=== PATIENT | female | born 1960 | race Caucasian/White ===

== ENCOUNTER 2016-08-12 20:07 | Emergency (ER) | payer MEDICARE, BC ==
[~2016-08-12] VITALS: Ht 170.2 cm; Wt 70.0 kg
[2016-08-12] MEDS ORDERED: METH500T97 PO (20:27)
[2016-08-12] MEDS ORDERED: CLON1TAB PO (20:28)
[2016-08-12] MEDS ORDERED: SODIUM CHLORIDE 0.9% 1,000 ML IV ONE (20:44)
[2016-08-12] MEDS ORDERED: ASPIRIN 81 MG TABLET CHEW PO ONE (21:00)
[2016-08-12] MEDS ORDERED: LORazepam 2 MG/ML, 1ML IVPush ONE (21:00)
[2016-08-12] MEDS ORDERED: NITROGLYCERIN SINGLE TAB 0.4 MG SL PRN (21:00)
[2016-08-12] MEDS ORDERED: SODIUM CHLORIDE FLUSH 10ML SYR IVF ONE (21:00)
[2016-08-12] MEDS ORDERED: ONDANSETRON 2MG/ML, 2ML IVPush ONE (21:00)
[2016-08-12] MEDS ORDERED: ASPIRIN 81 MG TABLET CHEW ONE (21:10)
[2016-08-12] MEDS ORDERED: NITROGLYCERIN SINGLE TAB 0.4 MG SL ONE (21:11)
[2016-08-12] MEDS ORDERED: LORazepam 2 MG/ML, 1ML ONE (21:14)
[2016-08-12] MEDS ORDERED: ONDANSETRON 2MG/ML, 2ML ONE (21:15)
[2016-08-12 21:27] LABS: BLOOD UREA NITROGEN 24 mg/dL (7-18)
[2016-08-12] MEDS ORDERED: SODIUM CHLORIDE FLUSH 10ML SYR IVF PRN (22:30)
[2016-08-12] MEDS ORDERED: SODIUM CHLORIDE 0.9% 1,000 ML IV SCH (22:45)
[2016-08-12] MEDS ORDERED: LABETALOL 5MG/ML, 20ML IVPush PRN (23:00)
[2016-08-12] MEDS ORDERED: TRAZODONE 50MG TABLET PO PRN (23:00)
[2016-08-12] MEDS ORDERED: ATORVASTATIN 80 MG TABLET PO SCH (23:00)
[2016-08-12] MEDS ORDERED: ACETAMINOPHEN 325 MG TABLET PO PRN (23:00)
[2016-08-12] MEDS ORDERED: ENOXAPARIN 40 MG/0.4 ML SQ SCH (23:00)
[2016-08-12] MEDS ORDERED: BISACODYL 10 MG SUPP PR PRN (23:00)
[2016-08-12] MEDS ORDERED: POLYETHYLENE GLYCOL 17 GM PACKET PO PRN (23:00)
[2016-08-12] MEDS ORDERED: DOCUSATE 100 MG CAPSULE PO PRN (23:00)
[2016-08-12] MEDS ORDERED: ENOXAPARIN 40 MG/0.4 ML ONE (23:35)
[2016-08-13 03:42] VITALS: BP 133/72
[2016-08-13 06:00] LABS: ASPARTATE AMINO TRANSFERASE 24 U/L (15-37); BLOOD UREA NITROGEN 21 mg/dL (7-18)
[2016-08-13] MEDS ORDERED: ASPIRIN 325 MG TABLET EC PO SCH (06:00)
[2016-08-13 06:11] LABS: IS PT STATUS REG ER OR PRE ER? YES
[2016-08-13] MEDS ORDERED: ASPIRIN 325 MG TABLET ONE (07:33)
[2016-08-13] MEDS ORDERED: ASPIRIN 325 MG TABLET EC ONE (07:35)
[2016-08-13] MEDS ORDERED: METHOCARBAMOL 500 MG TABLET PO SCH (09:00)
[2016-08-13] MEDS ORDERED: NITROFURANTOIN (MACROBID) 100 MG CAPSULE PO SCH (09:00)
[2016-08-18] MEDS ORDERED: CLON-365 PO (17:27)
[2016-08-18] MEDS ORDERED: GABA600T PO (17:27)
[2016-08-18] MEDS ORDERED: IBUP-1222 PO (17:27)
[2016-08-18] MEDS ORDERED: OMEP-110 PO (17:27)
[2016-08-18] MEDS ORDERED: OXCA600T3 PO (17:27)
[2016-08-19] MEDS ORDERED: HYDR-3240 PO (15:36)
== END 2016-08-13 08:13 | disposition left against medical advice (07) ==
LOC: ED 22:21 → UNDOADMOB 22:45 → EDIP 22:45 → ED 08-13 08:13
DX: R07.2 Precordial pain (principal); M54.5 Low back pain; G89.29 Other chronic pain; F17.210 Nicotine dependence, cigarettes, uncomplicated
CPT/HCPCS: 36415; 71010; 80048; 80053; 81001; 82040; 83735; 83880; 84439; 84443; 84484; 85025; 85610; 85730; 87077; 87086; 87186; 93005; 96361; 96372; 96374; 96375; 99285; J1650; J2060; J2405; J7030

== ENCOUNTER → 2016-09-19 | Outpatient (CLI) | payer MEDICARE, BC ==
[~2016-09-19] MED LIST: CHOL20002 PO; CLON-365 PO; CLON1TAB PO; DIAZ2TAB PO; GABA-826 PO; GABA600T PO; HYDR-3240 PO; IBUP-1222 PO; LURA20TA PO; METH500T97 PO; METH750T2 PO; METH750T87 PO; MULT-516 PO; OMEP-110 PO; OXCA150T PO; OXCA300T3 PO; OXCA600T3 PO; OXYC-302 PO; OXYC5TAB3 PO
== END | disposition home or self-care (01) ==
LOC: STAR 13:26
PROVIDERS: ATTEND Orthopaedic Surgery Orthopaedic Surgery of the Spine
DX: Z02.9 Encounter for administrative examinations, unspecified (principal)

== ENCOUNTER 2016-09-24 10:52 | Observation (INO) | payer MEDICARE, BC ==
[~2016-09-24] VITALS: Ht 170.2 cm; Wt 67.5 kg
[~2016-09-24 10:52] MED LIST changes: +CEFAZOLIN 1,000 MG ONE; +DEXAMETHASONE 4 MG/ML, 1ML ONE; -DIAZ2TAB PO; +EPHEDRINE 50 MG/ML, 1ML ONE; -GABA-826 PO; +KETOROLAC 30 MG/1 ML ONE; -LURA20TA PO; -METH750T2 PO; +ONDANSETRON 2MG/ML, 2ML ONE; -OXCA150T PO; -OXYC-302 PO; -OXYC5TAB3 PO; +PHENYLEPHRINE 10 MG/ML ONE; +PROPOFOL 10 MG/ML, 20ML ONE; +SUCCINYLCHOLINE 20 MG/ML, 10ML ONE
[2016-09-24] MEDS ORDERED: LACTATED RINGERS 1,000 ML IV SCH (11:25)
[2016-09-24 12:23] VITALS: BP 142/85
[2016-09-24] MEDS ORDERED: DIAZ2TAB PO (12:23)
[2016-09-24] MEDS ORDERED: OXYC-302 PO (12:23)
[2016-09-24] MEDS ORDERED: MIDAZOLAM 1 MG/ML, 2ML ONE (13:26)
[2016-09-24] MEDS ORDERED: FENTANYL PF 250 MCG/5ML ONE (13:26)
[2016-09-24] MEDS ORDERED: LIDOCAINE/MPF 2%-EPI 1:200K, 20 ML ONE (13:59)
[2016-09-24] MEDS ORDERED: VANCOMYCIN 1,000 MG ONE (13:59)
[2016-09-24] MEDS ORDERED: BUPIVACAINE LIPOSOME/PF INFIL ONE (14:30)
[2016-09-24] MEDS ORDERED: MIDAZOLAM 1 MG/ML, 2ML IV PRN (15:00)
[2016-09-24] MEDS ORDERED: ACETAMINOPHEN 325 MG TABLET PO PRN (15:00)
[2016-09-24] MEDS ORDERED: PROMETHAZINE 25 MG/ML, 1ML IV PRN (15:00)
[2016-09-24] MEDS ORDERED: METOCLOPRAMIDE 5 MG/ML, 2ML IV PRN (15:00)
[2016-09-24] MEDS ORDERED: OXYcodone 5 MG/5 ML ORAL.SOL UDC PO PRN (15:00)
[2016-09-24] MEDS ORDERED: MEPERIDINE/PF 25MG/0.5ML IVPush PRN (15:00)
[2016-09-24] MEDS ORDERED: ALBUTEROL/IPRATROPIUM 2.5MG/0.5MG, 3 ML NPPB PRN (15:00)
[2016-09-24] MEDS ORDERED: ONDANSETRON 2MG/ML, 2ML IVPush PRN (15:00)
[2016-09-24] MEDS ORDERED: hydrALAzine 20 MG/ML, 1ML IV PRN (15:00)
[2016-09-24] MEDS ORDERED: LABETALOL 5MG/ML, 20ML IV PRN (15:00)
[2016-09-24] MEDS ORDERED: HYDROmorphone 1 MG/ML, 1ML ONE ×3 (15:50→21:55)
[2016-09-24] MEDS ORDERED: FENTANYL PF 100 MCG/2ML ONE (16:11)
[2016-09-24] MEDS ORDERED: ACETAMINOPHEN 650 MG/20.3 ML UDC ONE (16:11)
[2016-09-24] MEDS ORDERED: OXYcodone 5 MG/5 ML ORAL.SOL UDC ONE (16:11)
[2016-09-24] MEDS ORDERED: LORazepam 2 MG/ML, 1ML ONE (16:12)
[2016-09-24] MEDS: FENTANYL PF 100 MCG/2ML IV PRN ×2 (16:16→16:26)
[2016-09-24] MEDS: HYDROmorphone 1 MG/ML, 1ML IV PRN ×2 (16:26→16:44)
[2016-09-24] MEDS: LORazepam 2 MG/ML, 1ML IVPush PRN ×2 (16:32→23:44)
[2016-09-24] MEDS ORDERED: OXYcodone IR 5MG TABLET ONE (21:55)
[2016-09-24] MEDS: HYDROmorphone 1 MG/ML, 1ML IVPush PRN (21:59)
[2016-09-24] MEDS: OXYcodone IR 5MG TABLET PO PRN (21:59)
[2016-09-24] MEDS ORDERED: OXCARBAZEPINE 150 MG TABLET PO SCH (22:30)
[2016-09-24] MEDS: OMEPRAZOLE MC SCH (23:00)
[2016-09-25 02:00] VITALS: BP 131/83
[2016-09-25] MEDS: OXYcodone IR 5MG TABLET PO PRN ×2 (02:34→07:12)
[2016-09-25] MEDS: HYDROmorphone 1 MG/ML, 1ML IVPush PRN (05:24)
[2016-09-25] MEDS: OMEPRAZOLE MC SCH (07:00)
[2016-09-25] MEDS ORDERED: CHOLECALCIFEROL 1,000 UNIT TABLET PO SCH (09:00)
[2016-09-25] MEDS ORDERED: GABAPENTIN 300 MG CAPSULE PO SCH (09:00)
[2016-09-25] MEDS ORDERED: DIAZEPAM 2 MG TABLET PO SCH (09:00)
[2016-09-25] MEDS ORDERED: MULTIVITAMIN 1 TABLET PO SCH (09:00)
[2016-09-25] MEDS ORDERED: METHOCARBAMOL 750 MG TABLET PO SCH (09:00)
[2016-09-25] MEDS ORDERED: OXYcodone/APAP 5/325MG TABLET PO SCH (09:00)
[2016-09-25 09:50] VITALS: BP 134/76
== END 2016-09-25 10:15 | disposition home or self-care (01) ==
LOC: ORIP 10:52 → INTOOBSV 10:52 → 4NOR 17:18 → OBSVTOIN 09-25 10:22 → INTOOBSV 09-25 10:22 → UNDODISOB 09-25 11:07
PROVIDERS: ADMIT Orthopaedic Surgery Orthopaedic Surgery of the Spine; ATTEND Orthopaedic Surgery Orthopaedic Surgery of the Spine
DX: M48.07 Spinal stenosis, lumbosacral region (principal); M54.17 Radiculopathy, lumbosacral region; M79.661 Pain in right lower leg
CPT/HCPCS: 63047; 72100; 96374; 96375; 96376; C9290; G0378; J0330; J0690; J1100; J1170; J1885; J2060; J2250; J2370; J2405; J2704; J3010; J3370; J3490; J7120

== ENCOUNTER 2016-09-27 13:36 | Inpatient (IN) | payer MEDICARE, BC ==
[~2016-09-27] VITALS: Ht 170.2 cm; Wt 57.9 kg
[~2016-09-27 13:36] MED LIST changes: -CEFAZOLIN 1,000 MG ONE; -DEXAMETHASONE 4 MG/ML, 1ML ONE; +DIAZ2TAB PO; -EPHEDRINE 50 MG/ML, 1ML ONE; -KETOROLAC 30 MG/1 ML ONE; -ONDANSETRON 2MG/ML, 2ML ONE; +OXYC-302 PO; -PHENYLEPHRINE 10 MG/ML ONE; -PROPOFOL 10 MG/ML, 20ML ONE; -SUCCINYLCHOLINE 20 MG/ML, 10ML ONE
[2016-09-27] MEDS ORDERED: MORPHINE SULFATE 4 MG/ML, 1ML IVPush ONE (14:30)
[2016-09-27] MEDS ORDERED: KETOROLAC 30 MG/1 ML IVPush ONE (14:30)
[2016-09-27] MEDS ORDERED: DIAZEPAM 5 MG/ML, 2ML IV ONE (14:30)
[2016-09-27] MEDS ORDERED: SODIUM CHLORIDE FLUSH 10ML SYR IVF ONE (14:30)
[2016-09-27] MEDS ORDERED: SODIUM CHLORIDE 0.9% 1,000ML IV ONE (14:30)
[2016-09-27 14:57] LABS: ASPARTATE AMINO TRANSFERASE 96 U/L (15-37); BLOOD UREA NITROGEN 16 mg/dL (7-18)
[2016-09-27] MEDS ORDERED: KETOROLAC 30 MG/1 ML ONE (15:19)
[2016-09-27] MEDS ORDERED: MORPHINE SULFATE 4 MG/ML, 1ML ONE (15:19)
[2016-09-27] MEDS ORDERED: DIAZEPAM 5 MG/ML, 2ML ONE (15:19)
[2016-09-27] MEDS ORDERED: ONDANSETRON 2MG/ML, 2ML IVPush PRN (16:30)
[2016-09-27] MEDS ORDERED: LABETALOL 5MG/ML, 20ML IVPush PRN ×2 (16:30→17:30)
[2016-09-27] MEDS ORDERED: DOCUSATE 100 MG CAPSULE PO PRN (16:30)
[2016-09-27] MEDS ORDERED: ENALAPRILAT 1.25 MG/ML, 2ML IVPush PRN ×2 (16:30→17:30)
[2016-09-27] MEDS ORDERED: BISACODYL 10 MG SUPP PR PRN (16:30)
[2016-09-27] MEDS ORDERED: POLYETHYLENE GLYCOL 17 GM PACKET PO PRN (16:30)
[2016-09-27] MEDS: HEPARIN 5,000 UNITS/ML, 1ML SQ SCH (17:45)
[2016-09-27] MEDS: OXYcodone/APAP 5/325MG TABLET PO PRN ×2 (17:45→22:08)
[2016-09-27] MEDS: SODIUM CHLORIDE 0.9% 1,000 ML IV SCH (17:46)
[2016-09-27] MEDS: METHOCARBAMOL 750 MG TABLET PO PRN (18:34)
[2016-09-27 19:31] VITALS: BP 143/76
[2016-09-27] MEDS: morphine SULFATE 10 MG/ML, 1ML IVPush PRN (20:28)
[2016-09-27] MEDS: GABAPENTIN 300 MG CAPSULE PO SCH (20:35)
[2016-09-27] MEDS: OXCARBAZEPINE 150 MG TABLET PO SCH (20:36)
[2016-09-27] MEDS: DIAZEPAM 2 MG TABLET PO PRN (21:04)
[2016-09-28] MEDS: METHOCARBAMOL 750 MG TABLET PO PRN (01:03)
[2016-09-28] MEDS: DIPHENHYDRAMINE 25 MG CAPSULE PO PRN (01:03)
[2016-09-28] MEDS: morphine SULFATE 10 MG/ML, 1ML IVPush PRN ×5 (01:03→20:41)
[2016-09-28] MEDS: HEPARIN 5,000 UNITS/ML, 1ML SQ SCH ×3 (01:10→16:53)
[2016-09-28 01:31] VITALS: BP 114/68
[2016-09-28] MEDS: SODIUM CHLORIDE 0.9% 1,000 ML IV SCH ×2 (05:34→15:37)
[2016-09-28 06:36] LABS: ASPARTATE AMINO TRANSFERASE 72 U/L (15-37); BLOOD UREA NITROGEN 16 mg/dL (7-18)
[2016-09-28] MEDS ORDERED: OMEPRAZOLE 20 MG CAPSULE.DR PO SCH (07:30)
[2016-09-28 08:04] VITALS: BP 131/75
[2016-09-28] MEDS: OXYcodone IR 5MG TABLET PO PRN (08:16)
[2016-09-28] MEDS: GABAPENTIN 300 MG CAPSULE PO SCH ×3 (08:16→20:40)
[2016-09-28] MEDS: DIAZEPAM 2 MG TABLET PO PRN ×3 (08:16→23:55)
[2016-09-28] MEDS: SENNA/DOCUSATE TABLET PO SCH (08:18)
[2016-09-28 14:26] VITALS: BP 121/56
[2016-09-28] MEDS ORDERED: KETOROLAC 30 MG/1 ML IVPush SCH (15:30)
[2016-09-28] MEDS: KETOROLAC 30 MG/1 ML IVPush PRN ×2 (17:30→23:56)
[2016-09-28] MEDS: OXCARBAZEPINE 150 MG TABLET PO SCH (20:40)
[2016-09-28 20:47] VITALS: BP 153/98
[2016-09-29] MEDS: HEPARIN 5,000 UNITS/ML, 1ML SQ SCH ×3 (01:32→17:00)
[2016-09-29] MEDS: SODIUM CHLORIDE 0.9% 1,000 ML IV SCH ×3 (01:32→21:29)
[2016-09-29] MEDS: OXYcodone IR 5MG TABLET PO PRN ×3 (01:38→15:32)
[2016-09-29] MEDS: METHOCARBAMOL 750 MG TABLET PO PRN ×2 (01:38→10:29)
[2016-09-29 01:39] VITALS: BP 144/76
[2016-09-29] MEDS: morphine SULFATE 10 MG/ML, 1ML IVPush PRN ×3 (03:57→18:03)
[2016-09-29 05:42] LABS: ASPARTATE AMINO TRANSFERASE 53 U/L (15-37); BLOOD UREA NITROGEN 17 mg/dL (7-18)
[2016-09-29] MEDS: KETOROLAC 30 MG/1 ML IVPush PRN ×3 (06:04→20:23)
[2016-09-29] MEDS: DIAZEPAM 2 MG TABLET PO PRN ×3 (06:04→20:22)
[2016-09-29 07:53] VITALS: BP 165/75
[2016-09-29] MEDS: SENNA/DOCUSATE TABLET PO SCH (08:02)
[2016-09-29] MEDS: GABAPENTIN 300 MG CAPSULE PO SCH ×3 (08:02→20:22)
[2016-09-29] MEDS ORDERED: OXYC5TAB3 PO (09:26)
[2016-09-29 13:05] VITALS: BP 156/78
[2016-09-29 19:17] VITALS: BP 159/81
[2016-09-29] MEDS: OXCARBAZEPINE 150 MG TABLET PO SCH (20:22)
[2016-09-30] MEDS: morphine SULFATE 10 MG/ML, 1ML IVPush PRN ×2 (00:23→08:15)
[2016-09-30] MEDS: HEPARIN 5,000 UNITS/ML, 1ML SQ SCH ×3 (00:25→17:28)
[2016-09-30 01:32] VITALS: BP 154/84
[2016-09-30] MEDS: DIAZEPAM 2 MG TABLET PO PRN ×2 (04:02→10:52)
[2016-09-30] MEDS: KETOROLAC 30 MG/1 ML IVPush PRN ×2 (04:03→10:52)
[2016-09-30 07:53] VITALS: BP 167/84
[2016-09-30] MEDS: GABAPENTIN 300 MG CAPSULE PO SCH ×3 (08:15→21:23)
[2016-09-30] MEDS: SENNA/DOCUSATE TABLET PO SCH (08:15)
[2016-09-30] MEDS: SODIUM CHLORIDE 0.9% 1,000 ML IV SCH (10:52)
[2016-09-30] MEDS: OXYcodone IR 5MG TABLET PO PRN ×3 (13:32→22:09)
[2016-09-30] MEDS: METHOCARBAMOL 750 MG TABLET PO PRN ×2 (13:32→22:09)
[2016-09-30 14:32] VITALS: BP 126/63
[2016-09-30 18:46] VITALS: BP 180/98
[2016-09-30] MEDS: OXCARBAZEPINE 150 MG TABLET PO SCH (21:00)
[2016-09-30] MEDS: DIPHENHYDRAMINE 25 MG CAPSULE PO PRN (22:09)
[2016-09-30 22:12] VITALS: BP 166/99
[2016-10-01] MEDS: HEPARIN 5,000 UNITS/ML, 1ML SQ SCH ×3 (01:22→17:11)
[2016-10-01 01:26] VITALS: BP 160/85
[2016-10-01] MEDS: OXYcodone IR 5MG TABLET PO PRN ×5 (03:16→20:57)
[2016-10-01 07:37] VITALS: BP 149/70
[2016-10-01] MEDS: GABAPENTIN 300 MG CAPSULE PO SCH (08:28)
[2016-10-01] MEDS: SENNA/DOCUSATE TABLET PO SCH (08:30)
[2016-10-01] MEDS: METHOCARBAMOL 750 MG TABLET PO PRN ×2 (08:58→17:12)
[2016-10-01 14:00] VITALS: BP 152/73
[2016-10-01] MEDS ORDERED: GABAPENTIN 300 MG CAPSULE PO SCH (16:00)
[2016-10-01] MEDS: LURASIDONE 20 MG TABLET PO SCH (17:11)
[2016-10-01] MEDS: GABAPENTIN 100 MG CAPSULE PO SCH (18:13)
[2016-10-01] MEDS: OXCARBAZEPINE 150 MG TABLET PO SCH (20:50)
[2016-10-01 21:03] VITALS: BP 147/82
[2016-10-02] MEDS: METHOCARBAMOL 750 MG TABLET PO PRN ×3 (01:33→18:07)
[2016-10-02] MEDS: OXYcodone IR 5MG TABLET PO PRN ×5 (01:33→18:07)
[2016-10-02] MEDS: HEPARIN 5,000 UNITS/ML, 1ML SQ SCH ×3 (01:33→17:00)
[2016-10-02 03:45] VITALS: BP 129/76
[2016-10-02 07:27] VITALS: BP 116/63
[2016-10-02 08:34] LABS: ASPARTATE AMINO TRANSFERASE 27 U/L (15-37); BLOOD UREA NITROGEN 18 mg/dL (7-18)
[2016-10-02] MEDS: SENNA/DOCUSATE TABLET PO SCH (09:00)
[2016-10-02] MEDS: GABAPENTIN 100 MG CAPSULE PO SCH (10:01)
[2016-10-02 12:44] VITALS: BP 127/69
[2016-10-02] MEDS ORDERED: LURA20TA PO (17:08)
[2016-10-02] MEDS ORDERED: GABA-826 PO (17:08)
[2016-10-02] MEDS ORDERED: OXCA150T PO (17:08)
[2016-10-02] MEDS ORDERED: METH750T2 PO (17:08)
[2016-10-02] MEDS: LURASIDONE 20 MG TABLET PO SCH (18:07)
[2016-10-02] MEDS ORDERED: GABAPENTIN 100 MG CAPSULE PO SCH (21:00)
== END 2016-10-02 19:49 | disposition home or self-care (01) | DRG 551 ==
LOC: ED 14:13 → EDIP 15:48 → 3NE 16:35
PROVIDERS: ADMIT Internal Medicine; ATTEND Hospitalist
DX: M96.1 Postlaminectomy syndrome, not elsewhere classified (principal); E43 Unspecified severe protein-calorie malnutrition; F31.81 Bipolar II disorder; I44.7 Left bundle-branch block, unspecified; F41.9 Anxiety disorder, unspecified; F12.90 Cannabis use, unspecified, uncomplicated; F43.10 Post-traumatic stress disorder, unspecified; I10 Essential (primary) hypertension; Z60.2 Problems related to living alone; I25.10 Atherosclerotic heart disease of native coronary artery without angina pectoris; J44.9 Chronic obstructive pulmonary disease, unspecified; K21.9 Gastro-esophageal reflux disease without esophagitis; Z90.49 Acquired absence of other specified parts of digestive tract; Z68.20 Body mass index [BMI] 20.0-20.9, adult; Z98.51 Tubal ligation status; Z88.6 Allergy status to analgesic agent; M62.838 Other muscle spasm; T42.1X5A Adverse effect of iminostilbenes, initial encounter; T42.4X5A Adverse effect of benzodiazepines, initial encounter; T39.1X5A Adverse effect of 4-Aminophenol derivatives, initial encounter
CPT/HCPCS: 36415; 72100; 80053; 83735; 84100; 85025; 96374; 96375; 96376; C9290; G0378; J0690; J1100; J1170; J1644; J1885; J2250; J2405; J2704; J3010; J3360; J3370; J3490; J0330; J2060; J2270; J2370; J7030; J7120; Q0163

== ENCOUNTER → 2017-08-14 | Outpatient (CLI) | payer MEDICARE, BC ==
[~2017-08-14] MED LIST changes: +GABA-826 PO; +LURA20TA PO; +METH750T2 PO; +OXCA150T PO; +OXYC5TAB3 PO
[2017-08-14 15:39] LABS: MICROSCOPIC AUTO
[2017-08-14 15:41] LABS: INTERNATIONAL NORMALIZED RATIO 1.04 (0.93-1.1); PROTHROMBIN TIME 10.7 Seconds (9.6-11.5)
[2017-08-14 15:43] LABS: CULTURE INDICATED? YES
[2017-08-14 16:24] LABS: CHLORIDE 103 mmol/L (98-107)
[2017-08-14 16:43] LABS: ALANINE AMINOTRANSFERASE 25 U/L (12-78); ALBUMIN 4.3 g/dL (3.4-5.0); ALKALINE PHOSPHATASE 97 U/L (45-117); ANION GAP 8 mmol/L (5-15); BILIRUBIN,TOTAL 0.6 mg/dL (0.2-1.0); CALCIUM 8.7 mg/dL (8.5-10.1); CREATININE 1.01 mg/dL (0.55-1.02); FREE T4 (FREE THYROXINE) 0.84 ng/dL (0.76-1.46)
== END | disposition home or self-care (01) ==
LOC: LAB 14:47
PROVIDERS: ATTEND Naturopath
DX: Z00.01 Encounter for general adult medical examination with abnormal findings (principal); R53.83 Other fatigue; F41.9 Anxiety disorder, unspecified; N95.1 Menopausal and female climacteric states; F31.4 Bipolar disorder, current episode depressed, severe, without psychotic features; R79.1 Abnormal coagulation profile
CPT/HCPCS: 36415; 80053; 81001; 82670; 83001; 84144; 84439; 84443; 84481; 85610; 85730; 87077; 87086; 87186

== ENCOUNTER → 2019-04-28 | Outpatient (CLI) | payer MEDICARE, BC ==
[~2019-04-28] MED LIST changes: +ALPR1TAB6 PO; -CHOL20002 PO; +CHOL200052 PO; -CLON-365 PO; +CLON1TAB11 PO; +CYCL5TAB PO; +LURA40TA PO; -OXCA150T PO; +OXCA150T18 PO; +TRAM50TA2 PO
[2019-04-28 13:44] LABS: BASOPHILS # (AUTO) 0.03 x10^3/uL (0-0.1); BASOPHILS % (AUTO) 1 % (0-1); EOSINOPHILS # (AUTO) 0.03 x10^3/uL (0-0.4); EOSINOPHILS % (AUTO) 1 % (1-7); LYMPHOCYTES # (AUTO) 2.04 x10^3/uL (1-3.4); LYMPHOCYTES % (AUTO) 34 % (22-44); MD NO; MEAN CORPUSCULAR HEMOGLOBIN 31.3 pg (27.0-34.8); MEAN CORPUSCULAR HGB CONC 33.8 g/dL (32.4-35.8); MEAN CORPUSCULAR VOLUME 92.6 fL (80-100); MEAN PLATELET VOLUME 8.3 fL (7.4-10.4); MONOCYTES # (AUTO) 0.38 x10^3/uL (0.2-0.8); MONOCYTES % (AUTO) 6 % (2-9); NEUTROPHILS # (AUTO) 3.48 x10^3/uL (1.8-6.8); NEUTROPHILS % (AUTO) 58 % (42-75); PLATELET COUNT 271 x10^3/uL (130-400); RED BLOOD COUNT 4.62 x10^6/uL (3.82-5.3); RED CELL DISTRIBUTION WIDTH 12.4 % (9.6-15.2)
[2019-04-28 13:44] LABS: MICROSCOPIC NOT IND
[2019-04-28 13:53] LABS: ALANINE AMINOTRANSFERASE 26 U/L (12-78); ALBUMIN 4.1 g/dL (3.4-5.0); ANION GAP 4 mmol/L (5-15); CALCIUM 9.1 mg/dL (8.5-10.1); CHLORIDE 106 mmol/L (98-107); CREATININE 0.96 mg/dL (0.55-1.02)
[2019-04-28 13:54] LABS: ALKALINE PHOSPHATASE 88 U/L (45-117); BILIRUBIN,TOTAL 0.3 mg/dL (0.2-1.0); TOTAL PROTEIN 7.2 g/dL (6.4-8.2)
[2019-04-28 13:56] LABS: INTERNATIONAL NORMALIZED RATIO 0.94 (0.93-1.1)
[2019-04-28 14:21] LABS: CULTURE INDICATED? NO
== END | disposition home or self-care (01) ==
LOC: STAR 12:23
PROVIDERS: ATTEND Neurological Surgery
DX: Z01.812 Encounter for preprocedural laboratory examination (principal); Z01.811 Encounter for preprocedural respiratory examination; M47.26 Other spondylosis with radiculopathy, lumbar region; M43.16 Spondylolisthesis, lumbar region; M54.5 Low back pain; R79.1 Abnormal coagulation profile; R94.31 Abnormal electrocardiogram [ECG] [EKG]
CPT/HCPCS: 36415; 71046; 80053; 81003; 85025; 85610; 85730; 93005

== ENCOUNTER 2019-05-10 05:43 | Inpatient (IN) | payer MEDICARE, BC ==
[~2019-05-10] VITALS: Ht 157.5 cm; Wt 69.0 kg
[2019-05-10] MEDS ORDERED: THROMBIN 5,000 UNIT VIAL TP ONE (06:04)
[2019-05-10] MEDS ORDERED: HEPARIN 1,000 UNITS/ML, 30ML ONE (06:04)
[2019-05-10] MEDS ORDERED: BUPIVACAINE/PF-EPI 0.5% 1:200K ONE (06:04)
[2019-05-10] MEDS ORDERED: BACITRACIN 50,000 UNIT ONE (06:05)
[2019-05-10 06:17] VITALS: BP 134/91
[2019-05-10] MEDS ORDERED: LACTATED RINGERS 1,000 ML IV SCH (06:20)
[2019-05-10] MEDS ORDERED: FENTANYL PF 250 MCG/5ML ONE (06:38)
[2019-05-10] MEDS ORDERED: MIDAZOLAM 1 MG/ML, 2ML ONE (06:38)
[2019-05-10] MEDS ORDERED: LISI-167 PO (06:56)
[2019-05-10] MEDS ORDERED: CEFAZOLIN 1,000 MG ONE (07:03)
[2019-05-10] MEDS ORDERED: ONDANSETRON 2MG/ML, 2ML ONE (07:03)
[2019-05-10] MEDS ORDERED: SUCCINYLCHOLINE 20 MG/ML, 10ML ONE (07:03)
[2019-05-10] MEDS ORDERED: ROCURONIUM 10 MG/ML,10ML ONE (07:03)
[2019-05-10] MEDS ORDERED: PROPOFOL 10 MG/ML, 20ML ONE (07:03)
[2019-05-10] MEDS ORDERED: DEXAMETHASONE 4 MG/ML, 1ML ONE (07:03)
[2019-05-10] MEDS ORDERED: LABETALOL 5MG/ML, 20ML IV PRN (08:00)
[2019-05-10] MEDS ORDERED: PROMETHAZINE 25 MG/ML, 1ML IV PRN (08:00)
[2019-05-10] MEDS ORDERED: KETOROLAC 30 MG/1 ML IV PRN (08:00)
[2019-05-10] MEDS ORDERED: DIAZEPAM 5 MG/ML, 2ML IV PRN ×2 (08:00)
[2019-05-10] MEDS ORDERED: METOCLOPRAMIDE 5 MG/ML, 2ML IV PRN (08:00)
[2019-05-10] MEDS ORDERED: ALBUTEROL SULFATE 2.5 MG/3 ML NPPB PRN (08:00)
[2019-05-10] MEDS ORDERED: OXYcodone 5 MG/5 ML ORAL.SOL UDC PO PRN (08:00)
[2019-05-10] MEDS ORDERED: ONDANSETRON 2MG/ML, 2ML IVPush PRN (08:00)
[2019-05-10] MEDS ORDERED: hydrALAzine 20 MG/ML, 1ML IV PRN (08:00)
[2019-05-10] MEDS ORDERED: HYDROmorphone 1 MG/ML, 1ML INJ IV PRN (08:00)
[2019-05-10] MEDS ORDERED: MEPERIDINE/PF 25MG/0.5ML IVPush PRN (08:00)
[2019-05-10] MEDS ORDERED: HEPARIN 1,000 UNITS/ML, 30ML IVPB ONE (08:23)
[2019-05-10] MEDS ORDERED: OXYcodone 5 MG/5 ML ORAL.SOL UDC ONE (08:44)
[2019-05-10] MEDS ORDERED: LORazepam 2 MG/ML, 1ML ONE (08:44)
[2019-05-10] MEDS ORDERED: FENTANYL PF 100 MCG/2ML ONE ×2 (08:44→09:49)
[2019-05-10] MEDS: LORazepam 2 MG/ML, 1ML IVPush PRN ×2 (08:49→08:59)
[2019-05-10] MEDS: FENTANYL PF 100 MCG/2ML IV PRN ×4 (08:52→10:15)
[2019-05-10] MEDS ORDERED: METHOCARBAMOL 1,000 MG in DEXTROSE 5% 100 ML IV ONE (09:00)
[2019-05-10 10:45] VITALS: BP 120/75
[2019-05-10] MEDS ORDERED: METHOCARBAMOL 750 MG TABLET PO PRN (11:30)
[2019-05-10] MEDS ORDERED: DIPHENHYDRAMINE 25 MG CAPSULE PO PRN (11:30)
[2019-05-10] MEDS ORDERED: ALPRazolam 1MG TAB PO PRN (11:30)
[2019-05-10] MEDS ORDERED: DIPHENHYDRAMINE 50 MG/ML, 1ML IM PRN (11:30)
[2019-05-10] MEDS ORDERED: MAGNESIUM HYDROXIDE 8%, 30ML UDC PO PRN (11:30)
[2019-05-10] MEDS ORDERED: ONDANSETRON 2MG/ML, 2ML IV PRN (11:30)
[2019-05-10] MEDS ORDERED: PROMETHAZINE 25 MG/ML, 1ML IM PRN (11:30)
[2019-05-10] MEDS ORDERED: DIPHENHYDRAMINE 50 MG/ML, 1ML IVPush PRN (11:30)
[2019-05-10] MEDS ORDERED: BISACODYL 10 MG SUPP PR PRN (11:30)
[2019-05-10] MEDS: HYDROmorphone 2 MG/ML, 1ML IM PRN ×2 (11:40→19:46)
[2019-05-10] MEDS: D5%-0.9% NACL+KCL 20MEQ 1,000 ML IV SCH (12:08)
[2019-05-10] MEDS: CEFAZOLIN PMX 1GM/50ML 50 ML IVPB SCH ×2 (15:57→23:52)
[2019-05-10 16:00] VITALS: BP 106/70
[2019-05-10] MEDS: OXYcodone IR 5MG TABLET PO PRN ×2 (17:23→22:15)
[2019-05-10 18:39] VITALS: BP 129/84
[2019-05-10] MEDS: OXCARBAZEPINE 300MG TABLET PO SCH (22:15)
[2019-05-10 23:33] VITALS: BP 135/79
[2019-05-11] MEDS: D5%-0.9% NACL+KCL 20MEQ 1,000 ML IV SCH ×2 (00:44→18:00)
[2019-05-11 03:56] VITALS: BP 129/84
[2019-05-11] MEDS: HYDROmorphone 2 MG/ML, 1ML IM PRN ×4 (04:07→19:45)
[2019-05-11] MEDS ORDERED: BUPIVACAINE/PF-EPI 0.5% 1:200K ONE (06:23)
[2019-05-11] MEDS ORDERED: VANCOMYCIN 1,000 MG ONE (06:23)
[2019-05-11] MEDS ORDERED: BACITRACIN 50,000 UNIT ONE (06:23)
[2019-05-11] MEDS ORDERED: FENTANYL PF 100 MCG/2ML ONE ×3 (06:26→10:15)
[2019-05-11] MEDS ORDERED: MIDAZOLAM 1 MG/ML, 2ML ONE (06:26)
[2019-05-11] MEDS ORDERED: SCOPOLAMINE 1MG PATCH TD ONE ×2 (06:43→06:45)
[2019-05-11] MEDS ORDERED: ONDANSETRON 2MG/ML, 2ML ONE (06:58)
[2019-05-11] MEDS ORDERED: PROPOFOL 10 MG/ML, 20ML ONE (06:58)
[2019-05-11] MEDS ORDERED: NEOSTIGMINE 1 MG/ML, 10ML ONE (06:58)
[2019-05-11] MEDS ORDERED: PHENYLEPHRINE 10 MG/ML ONE (06:58)
[2019-05-11] MEDS ORDERED: CEFAZOLIN 1,000 MG ONE (06:58)
[2019-05-11] MEDS ORDERED: ROCURONIUM 10 MG/ML,10ML ONE (06:58)
[2019-05-11] MEDS ORDERED: DEXAMETHASONE 4 MG/ML, 1ML ONE (06:58)
[2019-05-11] MEDS ORDERED: SUCCINYLCHOLINE 20 MG/ML, 10ML ONE (06:58)
[2019-05-11] MEDS ORDERED: EPHEDRINE 50 MG/ML, 1ML ONE (06:58)
[2019-05-11] MEDS ORDERED: GLYCOPYRROLATE 0.2MG/1ML, 5ML ONE (06:58)
[2019-05-11] MEDS ORDERED: VANCOMYCIN 1,000 MG IM ONE (07:43)
[2019-05-11] MEDS ORDERED: PROMETHAZINE 25 MG/ML, 1ML IV PRN (08:00)
[2019-05-11] MEDS ORDERED: MEPERIDINE/PF 25MG/ML,1ML IVPush PRN (08:00)
[2019-05-11] MEDS ORDERED: HYDROmorphone 2 MG/ML, 1ML IVPush PRN (08:00)
[2019-05-11] MEDS ORDERED: METHOCARBAMOL 1,000 MG in DEXTROSE 5% 100 ML IV ONE (08:58)
[2019-05-11] MEDS: LURASIDONE 20 MG TABLET PO SCH (09:00)
[2019-05-11] MEDS ORDERED: LORazepam 2 MG/ML, 1ML IVPush PRN (09:00)
[2019-05-11] MEDS ORDERED: SENNA/DOCUSATE TABLET PO SCH (09:00)
[2019-05-11] MEDS ORDERED: OXYcodone 5 MG/5 ML ORAL.SOL UDC ONE (09:07)
[2019-05-11] MEDS ORDERED: LORazepam 2 MG/ML, 1ML ONE (09:07)
[2019-05-11] MEDS: LORazepam 2 MG/ML, 1ML IVPush PRN ×2 (09:10→09:32)
[2019-05-11] MEDS: FENTANYL PF 100 MCG/2ML IV PRN ×3 (09:14→10:18)
[2019-05-11] MEDS ORDERED: OXYcodone 5 MG/5 ML ORAL.SOL UDC PO PRN (09:30)
[2019-05-11] MEDS ORDERED: PROMETHAZINE 25 MG/ML, 1ML IM PRN (11:30)
[2019-05-11] MEDS ORDERED: DIPHENHYDRAMINE 25 MG CAPSULE PO PRN (11:30)
[2019-05-11] MEDS ORDERED: ONDANSETRON 2MG/ML, 2ML IV PRN (11:30)
[2019-05-11] MEDS ORDERED: DIPHENHYDRAMINE 50 MG/ML, 1ML IM PRN (11:30)
[2019-05-11] MEDS ORDERED: MAGNESIUM HYDROXIDE 8%, 30ML UDC PO PRN (11:30)
[2019-05-11] MEDS ORDERED: METHOCARBAMOL 750 MG TABLET PO PRN (11:30)
[2019-05-11] MEDS ORDERED: BISACODYL 10 MG SUPP PR PRN (11:30)
[2019-05-11] MEDS ORDERED: DIPHENHYDRAMINE 50 MG/ML, 1ML IVPush PRN (11:30)
[2019-05-11 13:51] VITALS: BP 103/70
[2019-05-11] MEDS: CEFAZOLIN PMX 1GM/50ML 50 ML IVPB SCH (16:39)
[2019-05-11 19:19] VITALS: BP 112/64
[2019-05-11] MEDS: OXCARBAZEPINE 300MG TABLET PO SCH (21:00)
[2019-05-11 23:19] VITALS: BP 109/74
[2019-05-12] MEDS: CEFAZOLIN PMX 1GM/50ML 50 ML IVPB SCH (00:09)
[2019-05-12] MEDS: HYDROmorphone 2 MG/ML, 1ML IM PRN ×5 (00:09→21:49)
[2019-05-12 03:04] VITALS: BP 115/76
[2019-05-12] MEDS: D5%-0.9% NACL+KCL 20MEQ 1,000 ML IV SCH ×2 (03:20→15:21)
[2019-05-12] MEDS: ENOXAPARIN 40 MG/0.4 ML SQ SCH (06:05)
[2019-05-12 07:49] VITALS: BP 103/69
[2019-05-12] MEDS ORDERED: METHOCARBAMOL 1000MG/10 ML IV SCH (08:00)
[2019-05-12] MEDS: LISINOPRIL 10 MG TABLET PO SCH (08:54)
[2019-05-12] MEDS: POLYETHYLENE GLYCOL 17 GM PACKET PO SCH (08:54)
[2019-05-12] MEDS: LURASIDONE 20 MG TABLET PO SCH (08:54)
[2019-05-12] MEDS: SENNA/DOCUSATE TABLET PO SCH (08:54)
[2019-05-12] MEDS ORDERED: METOCLOPRAMIDE 5 MG/ML, 2ML IVPush PRN (09:00)
[2019-05-12] MEDS ORDERED: BISACODYL 10 MG SUPP PR PRN (09:00)
[2019-05-12] MEDS: KETOROLAC 30 MG/1 ML IVPush SCH ×3 (09:01→21:17)
[2019-05-12 11:44] LABS: BASOPHILS # (AUTO) 0.01 x10^3/uL (0-0.1); BASOPHILS % (AUTO) 0 % (0-1); EOSINOPHILS # (AUTO) 0.14 x10^3/uL (0-0.4); EOSINOPHILS % (AUTO) 2 % (1-7); LYMPHOCYTES # (AUTO) 1.17 x10^3/uL (1-3.4); LYMPHOCYTES % (AUTO) 13 % (22-44); MD NO; MEAN CORPUSCULAR HEMOGLOBIN 31.6 pg (27.0-34.8); MEAN CORPUSCULAR HGB CONC 33.5 g/dL (32.4-35.8); MEAN CORPUSCULAR VOLUME 94.5 fL (80-100); MEAN PLATELET VOLUME 8.5 fL (7.4-10.4); MONOCYTES # (AUTO) 0.94 x10^3/uL (0.2-0.8); MONOCYTES % (AUTO) 10 % (2-9); NEUTROPHILS # (AUTO) 6.94 x10^3/uL (1.8-6.8); NEUTROPHILS % (AUTO) 76 % (42-75); PLATELET COUNT 215 x10^3/uL (130-400); RED BLOOD COUNT 3.28 x10^6/uL (3.82-5.3); RED CELL DISTRIBUTION WIDTH 12.9 % (9.6-15.2)
[2019-05-12 11:53] LABS: ANION GAP 4 mmol/L (5-15); CALCIUM 8.1 mg/dL (8.5-10.1); CHLORIDE 109 mmol/L (98-107); CREATININE 0.79 mg/dL (0.55-1.02)
[2019-05-12] MEDS: METHOCARBAMOL 1,000 MG in DEXTROSE 5% 100 ML IV SCH ×2 (12:00→21:17)
--- NOTE | 2019-05-12 14:26 | NUR ---
Pt lives alone and will benefit from SNF rehab at 5x/week Addendum: 05/12/19 at 1426 by Naresh Beavers PT Amended: Links added.
[2019-05-12 14:30] VITALS: BP 97/66
[2019-05-12 21:00] VITALS: BP 150/83
[2019-05-12] MEDS: OXCARBAZEPINE 300MG TABLET PO SCH (21:00)
[2019-05-13] MEDS: D5%-0.9% NACL+KCL 20MEQ 1,000 ML IV SCH ×2 (01:49→15:28)
[2019-05-13] MEDS: HYDROmorphone 2 MG/ML, 1ML IM PRN ×3 (01:50→11:27)
[2019-05-13 01:54] VITALS: BP 103/68
[2019-05-13] MEDS: KETOROLAC 30 MG/1 ML IVPush SCH ×4 (03:28→20:13)
[2019-05-13] MEDS: METHOCARBAMOL 1,000 MG in DEXTROSE 5% 100 ML IV SCH (05:30)
[2019-05-13] MEDS: ENOXAPARIN 40 MG/0.4 ML SQ SCH (05:30)
[2019-05-13 06:18] LABS: MEAN CORPUSCULAR HEMOGLOBIN 31.8 pg (27.0-34.8); MEAN CORPUSCULAR HGB CONC 33.9 g/dL (32.4-35.8); MEAN CORPUSCULAR VOLUME 93.7 fL (80-100); MEAN PLATELET VOLUME 8.4 fL (7.4-10.4); PLATELET COUNT 189 x10^3/uL (130-400); RED CELL DISTRIBUTION WIDTH 12.6 % (9.6-15.2)
[2019-05-13 06:19] LABS: ANION GAP 4 mmol/L (5-15); CALCIUM 8.2 mg/dL (8.5-10.1); CHLORIDE 112 mmol/L (98-107); CREATININE 0.58 mg/dL (0.55-1.02)
[2019-05-13 07:18] LABS: BASOPHILS # (AUTO) 0.01 x10^3/uL (0-0.1); BASOPHILS % (AUTO) 0 % (0-1); EOSINOPHILS # (AUTO) 0.06 x10^3/uL (0-0.4); EOSINOPHILS % (AUTO) 1 % (1-7); LYMPHOCYTES # (AUTO) 0.95 x10^3/uL (1-3.4); LYMPHOCYTES % (AUTO) 11 % (22-44); MD SCAN; MONOCYTES # (AUTO) 0.67 x10^3/uL (0.2-0.8); MONOCYTES % (AUTO) 8 % (2-9); NEUTROPHILS # (AUTO) 6.58 x10^3/uL (1.8-6.8); NEUTROPHILS % (AUTO) 80 % (42-75)
[2019-05-13 08:01] VITALS: BP 109/73
[2019-05-13] MEDS: LURASIDONE 20 MG TABLET PO SCH (08:42)
[2019-05-13] MEDS: ALPRazolam 1MG TAB PO PRN ×2 (08:42→16:42)
[2019-05-13] MEDS: LISINOPRIL 10 MG TABLET PO SCH (08:42)
[2019-05-13] MEDS: SENNA/DOCUSATE TABLET PO SCH (08:43)
[2019-05-13] MEDS: POLYETHYLENE GLYCOL 17 GM PACKET PO SCH (08:58)
[2019-05-13 13:55] VITALS: BP 109/71
[2019-05-13 18:56] VITALS: BP 122/78
[2019-05-13] MEDS: OXCARBAZEPINE 300MG TABLET PO SCH (20:13)
[2019-05-13] MEDS: OXYcodone IR 5MG TABLET PO PRN (20:14)
[2019-05-13] MEDS: HYDROmorphone 2MG TABLET PO PRN (23:02)
[2019-05-14] MEDS: D5%-0.9% NACL+KCL 20MEQ 1,000 ML IV SCH
[2019-05-14] MEDS: OXYcodone IR 5MG TABLET PO PRN (00:28)
[2019-05-14 01:56] VITALS: BP 94/61
[2019-05-14] MEDS: KETOROLAC 30 MG/1 ML IVPush SCH (03:02)
[2019-05-14] MEDS: HYDROmorphone 2MG TABLET PO PRN (03:02)
[2019-05-14] MEDS: ENOXAPARIN 40 MG/0.4 ML SQ SCH (06:13)
[2019-05-14 08:00] VITALS: BP 112/53
[2019-05-14] MEDS: LISINOPRIL 10 MG TABLET PO SCH (08:50)
[2019-05-14] MEDS: LURASIDONE 20 MG TABLET PO SCH (08:50)
[2019-05-14] MEDS: SENNA/DOCUSATE TABLET PO SCH (08:50)
[2019-05-14] MEDS: POLYETHYLENE GLYCOL 17 GM PACKET PO SCH (08:52)
[2019-05-14] MEDS ORDERED: OXYC5CAP2 PO (09:56)
[2019-05-14] MEDS ORDERED: POLY17PO5 PO (09:59)
[2019-05-14] MEDS ORDERED: METH750T87 PO (09:59)
== END 2019-05-14 11:15 | disposition home or self-care (01) | DRG 454 ==
LOC: ORIP 05:43 → 4NE 10:45
PROVIDERS: ADMIT Neurological Surgery; ATTEND Neurological Surgery
PROC: 0SB40ZZ Excision of Lumbosacral Disc, Open Approach (ICD-10-PCS; 2019-05-10)
PROC: 0SG30A0 Fusion of Lumbosacral Joint with Interbody Fusion Device, Anterior Approach, Anterior Column, Open Approach (ICD-10-PCS; principal; 2019-05-10 07:00)
PROC: 0SG3071 Fusion of Lumbosacral Joint with Autologous Tissue Substitute, Posterior Approach, Posterior Column, Open Approach (ICD-10-PCS; 2019-05-11)
PROC: 01NB0ZZ Release Lumbar Nerve, Open Approach (ICD-10-PCS; 2019-05-11)
PROC: 01NR0ZZ Release Sacral Nerve, Open Approach (ICD-10-PCS; 2019-05-11)
PROC: 8E0W0CZ Robotic Assisted Procedure of Trunk Region, Open Approach (ICD-10-PCS; 2019-05-11)
DX: M51.37 Other intervertebral disc degeneration, lumbosacral region (principal); K56.7 Ileus, unspecified; M48.07 Spinal stenosis, lumbosacral region; M53.2X6 Spinal instabilities, lumbar region; I10 Essential (primary) hypertension; M43.06 Spondylolysis, lumbar region; F41.9 Anxiety disorder, unspecified
CPT/HCPCS: 36415; 72100; 72131; 74018; 74021; 80048; 85025; C1713; C1776; G0378; J0690; J1100; J1170; J1644; J1650; J1885; J2250; J2405; J2704; J2710; J3010; J3370; C1763; J0330; J2060; J2370; J2800; J3480; J7120

== ENCOUNTER → 2019-11-08 | Outpatient (CLI) | payer MEDICARE, BC ==
[~2019-11-08] MED LIST changes: +DEXAMETHASONE 4 MG/ML, 1ML ONE; +FENTANYL PF 250 MCG/5ML ONE; +GLYCOPYRROLATE 0.2MG/1ML, 5ML ONE; +LIDOCAINE-MPF 2% ,5ML ONE; +LISI-167 PO; +MIDAZOLAM 1 MG/ML, 2ML ONE; +OXYC5CAP2 PO; +POLY17PO5 PO; +PROPOFOL 10 MG/ML, 20ML ONE; +ROCURONIUM 10MG/ML,5ML ONE
== END | disposition home or self-care (01) ==
LOC: LAB 14:06
PROVIDERS: ATTEND Nurse Practitioner
DX: E83.41 Hypermagnesemia (principal); E83.51 Hypocalcemia
CPT/HCPCS: 36415; 82306; 82330

== ENCOUNTER 2019-11-10 06:03 | Day surgery (SDC) | payer MEDICARE, BC ==
[2019-11-08 14:38] LABS: BASOPHILS # (AUTO) 0.04 x10^3/uL (0-0.1); BASOPHILS % (AUTO) 1 % (0-1); EOSINOPHILS # (AUTO) 0.06 x10^3/uL (0-0.4); EOSINOPHILS % (AUTO) 1 % (1-7); LYMPHOCYTES # (AUTO) 2.03 x10^3/uL (1-3.4); LYMPHOCYTES % (AUTO) 35 % (22-44); MD NO; MEAN CORPUSCULAR HGB CONC 33.3 g/dL (32.4-35.8); MEAN CORPUSCULAR VOLUME 93.3 fL (80-100); MEAN PLATELET VOLUME 8.3 fL (7.4-10.4); MONOCYTES # (AUTO) 0.47 x10^3/uL (0.2-0.8); MONOCYTES % (AUTO) 8 % (2-9); NEUTROPHILS # (AUTO) 3.24 x10^3/uL (1.8-6.8); NEUTROPHILS % (AUTO) 55 % (42-75); PLATELET COUNT 280 x10^3/uL (130-400); RED BLOOD COUNT 4.54 x10^6/uL (3.82-5.3)
[2019-11-08 14:48] LABS: INTERNATIONAL NORMALIZED RATIO 0.98 (0.93-1.1); PROTHROMBIN TIME 10.1 Seconds (9.6-11.5)
[2019-11-08 14:52] LABS: ALANINE AMINOTRANSFERASE 28 U/L (12-78); ALBUMIN 4.2 g/dL (3.4-5.0); ANION GAP 9 mmol/L (5-15); CALCIUM 9.4 mg/dL (8.5-10.1); CHLORIDE 104 mmol/L (98-107); CREATININE 0.99 mg/dL (0.55-1.02)
[2019-11-08 14:54] LABS: ALKALINE PHOSPHATASE 85 U/L (45-117); BILIRUBIN,TOTAL 0.3 mg/dL (0.2-1.0); TOTAL PROTEIN 7.4 g/dL (6.4-8.2)
[~2019-11-10] VITALS: Ht 167.6 cm; Wt 62.7 kg
[~2019-11-10 06:03] MED LIST changes: -DEXAMETHASONE 4 MG/ML, 1ML ONE; -FENTANYL PF 250 MCG/5ML ONE; -GLYCOPYRROLATE 0.2MG/1ML, 5ML ONE; -LIDOCAINE-MPF 2% ,5ML ONE; -MIDAZOLAM 1 MG/ML, 2ML ONE; -PROPOFOL 10 MG/ML, 20ML ONE; -ROCURONIUM 10MG/ML,5ML ONE
[2019-11-10] MEDS ORDERED: CHLORHEXIDINE 15 ML UDC MM STA (06:18)
[2019-11-10] MEDS ORDERED: LACTATED RINGERS 1,000 ML IV ONE (06:18)
[2019-11-10 06:19] VITALS: BP 140/83
[2019-11-10] MEDS ORDERED: CHLORHEXIDINE 15 ML UDC ONE (06:23)
[2019-11-10] MEDS ORDERED: SCOPOLAMINE 1MG PATCH TD ONE (06:54)
[2019-11-10] MEDS ORDERED: CEFAZOLIN 1,000 MG ONE (06:58)
[2019-11-10] MEDS ORDERED: METOCLOPRAMIDE 5 MG/ML, 2ML ONE (06:58)
[2019-11-10] MEDS ORDERED: EPHEDRINE 50 MG/ML, 1ML ONE (06:58)
[2019-11-10] MEDS ORDERED: GLYCOPYRROLATE 0.2MG/1ML, 5ML ONE (06:58)
[2019-11-10] MEDS ORDERED: DEXAMETHASONE 4 MG/ML, 1ML ONE (06:58)
[2019-11-10] MEDS ORDERED: ROCURONIUM 10 MG/ML,10ML ONE (06:58)
[2019-11-10] MEDS ORDERED: PROPOFOL 10 MG/ML, 20ML ONE (06:58)
[2019-11-10] MEDS ORDERED: SCOPOLAMINE 1MG PATCH TD SCH (07:00)
[2019-11-10] MEDS ORDERED: ALBUTEROL/IPRATROPIUM 2.5MG/0.5MG, 3 ML NPPB PRN (07:30)
[2019-11-10] MEDS ORDERED: DIPHENHYDRAMINE 50 MG/ML, 1ML IVPush PRN (07:30)
[2019-11-10] MEDS ORDERED: MEPERIDINE/PF 25MG/0.5ML IVPush PRN (07:30)
[2019-11-10] MEDS ORDERED: EPHEDRINE 50 MG/ML, 1ML IVPush PRN (07:30)
[2019-11-10] MEDS ORDERED: KETOROLAC 30 MG/1 ML IVPush PRN (07:30)
[2019-11-10] MEDS ORDERED: EPHEDRINE 50 MG/ML, 1ML IM PRN (07:30)
[2019-11-10] MEDS ORDERED: METOCLOPRAMIDE 5 MG/ML, 2ML IVPush PRN (07:30)
[2019-11-10] MEDS ORDERED: ONDANSETRON 2MG/ML, 2ML IVPush PRN (07:30)
[2019-11-10] MEDS ORDERED: MIDAZOLAM 1 MG/ML, 2ML IV PRN (07:30)
[2019-11-10] MEDS ORDERED: HALOPERIDOL 5 MG/ML IV PRN (07:30)
[2019-11-10] MEDS ORDERED: OXYcodone 5 MG/5 ML ORAL.SOL UDC PO PRN (07:30)
[2019-11-10] MEDS ORDERED: LABETALOL 5MG/ML, 20ML IV PRN (07:30)
[2019-11-10] MEDS ORDERED: DIAZEPAM 5 MG/ML, 2ML IVPush PRN (07:30)
[2019-11-10] MEDS ORDERED: METHOCARBAMOL 1,000 MG in DEXTROSE 5% 100 ML IV PRN (07:30)
[2019-11-10] MEDS ORDERED: hydrALAzine 20 MG/ML, 1ML IV PRN (07:30)
[2019-11-10] MEDS ORDERED: LORazepam 2 MG/ML, 1ML IVPush PRN (07:30)
[2019-11-10] MEDS ORDERED: FENTANYL PF 100 MCG/2ML ONE (07:50)
[2019-11-10] MEDS ORDERED: OXYcodone 5 MG/5 ML ORAL.SOL UDC ONE (07:51)
[2019-11-10] MEDS: FENTANYL PF 100 MCG/2ML IV PRN ×2 (08:05→08:15)
[2019-11-10] MEDS ORDERED: LIDOCAINE 1%, 20ML ONE (13:43)
== END 2019-11-10 09:50 | disposition home or self-care (01) ==
LOC: OUT 06:03
PROVIDERS: ATTEND Surgery Vascular Surgery
DX: M96.841 Postprocedural hematoma of a musculoskeletal structure following other procedure (principal); Z20.828 Contact with and (suspected) exposure to other viral communicable diseases; F41.9 Anxiety disorder, unspecified; M81.0 Age-related osteoporosis without current pathological fracture; F32.9 Major depressive disorder, single episode, unspecified; M19.90 Unspecified osteoarthritis, unspecified site; M85.80 Other specified disorders of bone density and structure, unspecified site; Z90.49 Acquired absence of other specified parts of digestive tract; Z98.890 Other specified postprocedural states; Z85.828 Personal history of other malignant neoplasm of skin; Z79.899 Other long term (current) drug therapy; Z72.89 Other problems related to lifestyle; Z87.891 Personal history of nicotine dependence; Z88.5 Allergy status to narcotic agent; Z88.8 Allergy status to other drugs, medicaments and biological substances
CPT/HCPCS: 22901; 36415; 80053; 85025; 85610; 85730; 87635; 88305; 93005; J0690; J1100; J2250; J2704; J2765; J3010; J7120